=== PATIENT | female | born 1945 | race Caucasian/White ===

== ENCOUNTER → 2017-06-13 | Outpatient (CLI) | payer OTHER, MEDICAID ==
[2017-06-13 13:57] LABS: BLOOD GAS BASE EXCESS 0.6 mmol/L (-2-2); BLOOD GAS CARBOXYHEMOGLOBIN 2.1 % (0-4); BLOOD GAS HCO3 25 mmol/L (22-26); BLOOD GAS O2 HGB SATURATION 95 % (90-100); BLOOD GAS OXYGEN CONTENT 15.2 Vol % (12.0-20.0); BLOOD GAS PCO2 38 mmHg (38-42); BLOOD GAS PO2 89 mmHg (61-120); BLOOD GAS TOTAL HGB 11.4 G/DL (12.0-16.0); TEMP CORR TO 98.6
[2017-06-13 13:58] LABS: CRITICAL VALUE NO; DRAW SITE RT RADIAL; FIO2 21 %; NUMBER OF ARTERIAL PUNCTURES 1; STAT NO; ULNAR PULSE PRESENT
--- NOTE | 2017-06-14 09:23 | RSPPFT ---
DATE OF PROCEDURE: 06/13/17 COMMENTS: Spirometry shows FVC of 1.3 at 52% of predicted, FEV1 of 1.3 at 64%, FEV1/FVC ratio is normal. Flow is normal at FEF 25, FEF 50, FEF 75 and FEF 25-75. There is a paradoxical response to bronchodilator treatment. Lung volumes show residual volume is decreased. TLC is decreased. Diffusion capacity is decreased. Flow volume loops indicate a restrictive pattern. Room air arterial blood gases show pH of 7.42, PCO2 of 38, PO2 of 89, BiCarb of 25 and O2 Saturation at 95%. IMPRESSION: 1. Moderately severe restrictive lung disease. 2. Paradoxical response to acutely inhaled bronchodilator treatment. 3. Lung volumes are decreased. 4. Diffusion capacity is decreased. 5. Blood gases show normal oxygenation on room air.
== END ==
LOC: HRSP 12:59
PROVIDERS: ATTEND Specialist
DX: J44.9 Chronic obstructive pulmonary disease, unspecified (principal)
CPT/HCPCS: 36600; 82805; 94060; 94726; 94729